=== PATIENT | female | born 1950 | race Caucasian/White ===

== ENCOUNTER 2016-10-12 12:24 | Inpatient (IN) | payer OTHER ==
--- NOTE | 2016-10-12 12:40 | ER Document Report ---
ED Medical Screen (RME) - General Stated Complaint: FAST HEART RATE Mode of Arrival: Ambulatory Information source: Patient TRAVEL OUTSIDE OF THE [place] IN LAST 30 DAYS: No - HPI Onset: Yesterday Onset/Duration: Gradual Quality of pain: No pain Associated Symptoms: denies: Chest pain, Chills, Fever, Hurts to breath, Leg swelling, Shortness of breath Exacerbated by: Denies Relieved by: Denies Similar symptoms previously: No Recently seen / treated by doctor: Yes - ORTHO, LAST WEEK - Related Data Smoking: Non-smoker Frequency of alcohol use: Occasional Drug Abuse: None Allergies/Adverse Reactions: No Known Allergies Allergy (Verified 10/21/14 20:21) Past Medical History - General Information source: Patient - Social History Cigarette use (# per day): No Chew tobacco use (# tins/day): No Frequency of alcohol use: Occasional Drug Abuse: None Lives with: Spouse/Significant other Family history: CAD - Past Medical History Cardiac Medical History: Reports: Hx Hypercholesterolemia Denies: Hx Coronary Artery Disease, Hx Heart Attack, Hx Hypertension Pulmonary Medical History: Denies: Hx Asthma, Hx Bronchitis, Hx COPD, Hx Pneumonia Neurological Medical History: Denies: Hx Cerebrovascular Accident, Hx Seizures GI Medical History: Musculoskeltal Medical History: Reports Hx Arthritis - Knee, hands Psychiatric Medical History: Reports: None Infectious Medical History: Past Surgical History: Reports: Hx Cholecystectomy, Hx Coronary Artery Bypass Graft, Hx Hysterectomy, Hx Orthopedic Surgery - R. TKR. Denies: Hx Pacemaker - Immunizations Hx Diphtheria, Pertussis, Tetanus Vaccination: Yes Review of Systems - Review of Systems Constitutional: Weakness EENT: No symptoms reported Cardiovascular: Palpitations. denies: Dyspnea, Dizziness, Edema Respiratory: denies: Short of breath Gastrointestinal: No symptoms reported Musculoskeletal: No symptoms reported. denies: Leg swelling Physical Exam - Vital signs Interpretation: Tachycardic. No: Hypertensive, Tachypneic, Febrile - General General appearance: Appears well, Alert In distress: None - HEENT Head: Normocephalic Eyes: Normal Ears: Normal Nasal: Normal Mouth/Lips: Normal Mucous membranes: Normal - Respiratory Respiratory status: No respiratory distress - Cardiovascular Rhythm: Regular, Tachycardia - Extremities General lower extremity: No: Tender, Edema
[2016-10-12] MEDS ORDERED: ADENOSINE INJ/PF 6 MG/2 ML SDV IV ONE ×2 (12:59)
[2016-10-12] MEDS ORDERED: NORMAL SALINE 1000 ML 1,000 ML IV ONE ×2 (12:59→15:37)
[2016-10-12 13:07] LABS: ABSOLUTE LYMPHOCYTES (AUTO) 1.2 10^3/uL (0.5-4.7); ABSOLUTE MONOCYTES (AUTO) 0.5 10^3/uL (0.1-1.4); ABSOLUTE NEUT (AUTO) 5.8 10^3/uL (1.7-8.2); BASOPHILS % (AUTO) 0.2 % (0-2); EOSINOPHILS % (AUTO) 0.1 % (0-6); HEMATOCRIT 40.8 % (36.0-47.0); HEMOGLOBIN 13.5 g/dL (12.0-15.5); HGB HCT DIFFERENCE -0.3; LYMPHOCYTES % (AUTO) 16.1 % (13-45); MEAN CORPUSCULAR HEMOGLOBIN 28.7 pg (27.0-33.4); MEAN CORPUSCULAR HGB CONC 33.1 g/dL (32.0-36.0); MEAN CORPUSCULAR VOLUME 87 fl (80-97); MONOCYTES % (AUTO) 7.1 % (3-13); RED BLOOD COUNT 4.71 10^6/uL (3.72-5.28); RED CELL DISTRIBUTION WIDTH 12.9 % (11.5-14.0); SEGMENTED NEUTROPHILS % (AUTO) 76.5 % (42-78); WHITE BLOOD COUNT 7.6 10^3/uL (4.0-10.5)
[2016-10-12] MEDS ORDERED: DILTIAZEM HCL/D5W 125 ML IV PRN ×2 (13:12→15:33)
[2016-10-12] MEDS ORDERED: DILTIAZEM HCL INJ 25 MG/5 ML VIAL IV ONE (13:12)
[2016-10-12] MEDS ORDERED: ASPIRIN 325 MG TABLET PO ONE (13:13)
[2016-10-12 13:29] LABS: ALANINE AMINOTRANSFERASE 45 U/L (9-52); ALBUMIN 4.3 g/dL (3.5-5.0); ALKALINE PHOSPHATASE 126 U/L (38-126); ANION GAP 14 (5-19); ASPARTATE AMINO TRANSFERASE 36 U/L (14-36); BILIRUBIN,DIRECT 0.3 mg/dL (0.0-0.4); BILIRUBIN,TOTAL 0.9 mg/dL (0.2-1.3); BLOOD UREA NITROGEN 12 mg/dL (7-20); CALCIUM 9.9 mg/dL (8.4-10.2); CARBON DIOXIDE 26 mmol/L (22-30); CHLORIDE 102 mmol/L (98-107); CREATINE KINASE 71 U/L (30-135); CREATININE RESULT 0.83 mg/dL (0.52-1.25); GLUCOSE 121 mg/dL (75-110); LIPASE 82.9 U/L (23-300); MAGNESIUM 2.2 mg/dL (1.6-2.3); POTASSIUM 3.9 mmol/L (3.6-5.0); SODIUM 141.9 mmol/L (137-145); TOTAL PROTEIN 7.2 g/dL (6.3-8.2)
[2016-10-12] MEDS ORDERED: ACETAMINOPHEN 325 MG TABLET PO ONE (13:35)
[2016-10-12 13:39] LABS: CREATINE KINASE MB 0.33 ng/mL (<4.55)
[2016-10-12 13:40] LABS: TROPONIN I < 0.012 ng/mL
[2016-10-12 13:58] LABS: THYROID STIMULATING HORMONE 1.23 uIU/mL (0.47-4.68)
[2016-10-12 14:15] LABS: PARTIAL THROMBOPLASTIN TIME 26.8 SEC (23.5-35.8); PROTHROMBIN TIME 12.9 SEC (11.4-15.4)
[2016-10-12] MEDS ORDERED: ENOXAPARIN SODIUM INJ 100 MG/1 ML DISP.SYRIN SUBCUT SCH ×2 (15:00→22:00)
[2016-10-12 15:03] LABS: APPEARANCE,URINE CLEAR; BILIRUBIN,URINE NEGATIVE (NEGATIVE); GLUCOSE, URINE NEGATIVE (NEGATIVE); KETONES,URINE NEGATIVE (NEGATIVE); LEUKOCYTE ESTERASE,URINE NEGATIVE (NEGATIVE); NITRITE,URINE NEGATIVE (NEGATIVE); PROTEIN,URINE NEGATIVE (NEGATIVE); URINE SPECIFIC GRAVITY 1.002; UROBILINOGEN,URINE NEGATIVE mg/dL (<2.0)
--- NOTE | 2016-10-12 15:18 | ER Document Report ---
ED General - General Chief Complaint: Palpitations Stated Complaint: FAST HEART RATE Mode of Arrival: Ambulatory TRAVEL OUTSIDE OF THE [place] IN LAST 30 DAYS: No - HPI Patient complains to provider of: palpitations weakness Notes: Patient coming in for evaluation of palpitations and weakness. Patient states symptoms are worse had knee surgery recent manipulation of her knees to physical therapy was very restless night priorthis point her heart rate was very elevated tried vagal maneuvers at home with no changed ever came to the ER for further evaluation. Patient also states history of CABG in the past with A. betina in the past 2 as well. Patient states she is to be on beta marcy Osito was however currently right now does not want any of those medications. Patient denies chest pain denies shortness of breath denies fevers chills nausea vomiting. Denies any recent travel - Related Data Allergies/Adverse Reactions: No Known Allergies Allergy (Verified 10/21/14 20:21) Past Medical History - General Information source: Patient - Social History Smoking Status: Unknown if Ever Smoked Cigarette use (# per day): No Chew tobacco use (# tins/day): No Frequency of alcohol use: Occasional Drug Abuse: None Lives with: Spouse/Significant other Family History: CAD - mother and father had [place] Patient has suicidal ideation: No Patient has homicidal ideation: No - Past Medical History Cardiac Medical History: Reports: Hx Hypercholesterolemia Denies: Hx Coronary Artery Disease, Hx Heart Attack, Hx Hypertension Pulmonary Medical History: Denies: Hx Asthma, Hx Bronchitis, Hx COPD, Hx Pneumonia Neurological Medical History: Denies: Hx Cerebrovascular Accident, Hx Seizures Renal/ Medical History: Denies: Hx Peritoneal Dialysis GI Medical History: Musculoskeltal Medical History: Reports Hx Arthritis - Knee, hands Psychiatric Medical History: Reports: None Infectious Medical History: Past Surgical History: Reports: Hx Cholecystectomy, Hx Coronary Artery Bypass Graft, Hx Hysterectomy, Hx Orthopedic Surgery - R. TKR. Denies: Hx Pacemaker - Immunizations Hx Diphtheria, Pertussis, Tetanus Vaccination: Yes Review of Systems - Review of Systems Constitutional: No symptoms reported EENT: No symptoms reported Cardiovascular: Palpitations Respiratory: No symptoms reported Gastrointestinal: No symptoms reported Genitourinary: No symptoms reported Female Genitourinary: No symptoms reported Musculoskeletal: No symptoms reported Skin: No symptoms reported Hematologic/Lymphatic: No symptoms reported Neurological/Psychological: No symptoms reported -: Yes All other systems reviewed and negative Physical Exam - Vital signs Interpretation: Tachycardic - General General appearance: Appears well, Alert - HEENT Head: Normocephalic, Atraumatic Eyes: Normal Pupils: PERRL - Respiratory Respiratory status: No respiratory distress Chest status: Nontender Breath sounds: Normal Chest palpation: Normal - Cardiovascular Rhythm: Tachycardia Heart sounds: Normal auscultation Murmur: No - Abdominal Inspection: Normal Distension: No distension Bowel sounds: Normal Tenderness: Nontender Organomegaly: No organomegaly - Back Back: Normal, Nontender - Extremities General upper extremity: Normal inspection, Nontender, Normal color, Normal ROM , Normal temperature General lower extremity: Normal inspection, Nontender, Normal color, Normal ROM , Normal temperature, Normal weight bearing. No: Chichi's sign - Neurological Neuro grossly intact: Yes Cognition: Normal Orientation: AAOx4 Richie Coma Scale Eye Opening: Spontaneous Richie Coma Scale Verbal: Oriented Richie Coma Scale Motor: Obeys Commands Richie Coma Scale Total: 15 Speech: Normal Motor strength normal: LUE, RUE, LLE, RLE Sensory: Normal - Psychological Associated symptoms: Normal affect, Normal mood - Skin Skin Temperature: Warm Skin Moisture: Dry Skin Color: Normal Course - Re-evaluation Re-evalutation: 10/12/16 15:16 Patient's EKG showed SVT initially with a heart rate greater than 150. Your no P waves seen and EKG. Patient was given 6 mg of adenosine an EKG that showing underlying atrial flutter. Patient was given Cardizem with rate control gain and a drip of Cardizem to maintain. Patient due to recent knee surgery and manipulation with onset of symptoms underwent a CTA showing a right-sided PE. Discuss with hospitals agrees with dose of Lovenox at this time otherwise lab work unremarkable patient will be admitted for further evaluation. - Laboratory Result Diagrams: 10/12/16 13:00 10/12/16 13:00 Laboratory results interpreted by me: 10/12/16 13:00 Glucose 121 H Critical Care Note - Critical Care Note Total time excluding time spent on procedures (mins): 40 Comments: Multiple evaluations for patient with the above stated issues managing Cardizem drip Discharge - Discharge Clinical Impression: Atrial flutter with rapid ventricular response Pulmonary embolism Qualifiers: Pulmonary embolism type: other Chronicity: acute Acute cor pulmonale presence: without acute cor pulmonale Qualified Code(s): I26.99 - Other pulmonary embolism without acute cor pulmonale Condition: Good Disposition: ADMITTED INPATIENT Admitting Provider: Hospitalist [facility] Unit Admitted: [facility]
[2016-10-12 15:24] LABS: URINE BARBITURATES SCREEN NEGATIVE; URINE METHADONE SCREEN NEGATIVE; URINE OPIATES LOW NEGATIVE; URINE PHENCYCLIDINE SCREEN NEGATIVE
[2016-10-12] MEDS ORDERED: OXYCODONE-ACETAMINOPHEN 5-325 MG TABLET PO PRN (15:29)
[2016-10-12] MEDS ORDERED: DOCUSATE SODIUM 100 MG CAPSULE PO PRN (15:29)
[2016-10-12] MEDS ORDERED: ACETAMINOPHEN 325 MG TABLET PO PRN (15:29)
[2016-10-12] MEDS ORDERED: ZOLPIDEM TARTRATE 5 MG TABLET PO PRN (15:29)
[2016-10-12] MEDS ORDERED: ONDANSETRON HCL INJ/PF 4 MG/2 ML SDV IV PRN (15:29)
[2016-10-12] MEDS ORDERED: MAG HYDROX/AL HYDROX/SIMETH SUSP 30 ML UDCUP PO PRN (15:29)
[2016-10-12] MEDS ORDERED: MAGNESIUM HYDROXIDE SUSP 30 ML UDCUP PO PRN (15:29)
[2016-10-12] MEDS ORDERED: MORPHINE SULFATE 10 MG/ML INJ IV PRN (15:43)
[2016-10-12] MEDS ORDERED: METOPROLOL SUCCINATE 50 MG TAB.SR.24H PO ONE (16:00)
[2016-10-12] MEDS ORDERED: METOPROLOL TARTRATE PF/INJ 5 MG/5 ML SDV IV ONE (16:00)
--- NOTE | 2016-10-12 16:10 | PDOC H&P ---
History of Present Illness Admission Date/PCP: 10/12/16 15:23 ERNESTO DYE MD History of Present Illness: ANETA PEREA is a 66 year old female with history of coronary artery disease, LA, hyperlipidemia, objective sleep apnea who underwent right total knee replacement on July 20. Patient reports that on Sunday she underwent a closed manipulation of her knee in [place]. She stated that the day prior she started to not feel well and after her procedure yesterday patient began feeling tired and that evening was quite restless. She woke up and found that her heart rate was 120 resting and 160 with ambulation with her pulse feeling thready. Patient reports that she then drank to 32 ounces will sugar Gatorade without a change in her heart rate. Upon presentation the emergency department patient was found to be in SVT. She was given adenosine and found to be in a flutter. Patient underwent CTA of the chest is found to have an acute right lower lobe PE. She is referred to the hospital service for evaluation. Past Medical History Cardiac Medical History: Reports: Hyperlipidema Denies: Coronary Artery Disease, Myocardial Infarction, Hypertension Pulmonary Medical History: Denies: Asthma, Bronchitis, Chronic Obstructive Pulmonary Disease (COPD), Pneumonia Neurological Medical History: Denies: Seizures Endocrine Medical History: Reports: Obesity GI Medical History: Musculoskeltal Medical History: Reports: Arthritis - Knee, hands Skin Medical History: Reports: Other - Rosacea Psychiatric Medical History: Reports: None Hematology: Denies: Anemia Past Surgical History Past Surgical History: Reports: Cholecystectomy, Coronary Artery Bypass Graft, Hysterectomy, Orthopedic Surgery - R. TKR Denies: Pacemaker Social History Lives with: Spouse/Significant other Smoking Status: Never Smoker Frequency of Alcohol Use: None Hx Recreational Drug Use: No Hx Prescription Drug Abuse: No - Advance Directive Resuscitation Status: Full Code Surrogate healthcare decision maker:: Ángel, Family History Family History: CAD - mother and father had [place], DM, Malignancy Parental Family History Reviewed: Yes Children Family History Reviewed: Yes Sibling(s) Family History Reviewed.: Yes Medication/Allergy Allergies/Adverse Reactions: No Known Allergies Allergy (Verified 10/21/14 20:21) Review of Systems Constitutional: PRESENT: fatigue, headache(s), night sweats - 1 day. ABSENT: chills, fever(s), weight gain, weight loss Eyes: ABSENT: visual disturbances Ears: ABSENT: hearing changes Cardiovascular: PRESENT: edema. ABSENT: chest pain, dyspnea on exertion, orthropnea, palpitations Respiratory: ABSENT: cough, dyspnea, hemoptysis, sputum Gastrointestinal: ABSENT: abdominal pain, constipation, diarrhea, hematemesis, hematochezia, melena, nausea, vomiting Genitourinary: ABSENT: dysuria, hematuria Musculoskeletal: PRESENT: joint swelling - Right knee Integumentary: ABSENT: rash, wounds Neurological: ABSENT: abnormal gait, abnormal speech, confusion, dizziness, focal weakness, syncope Psychiatric: ABSENT: anxiety, depression, homidical ideation, suicidal ideation Endocrine: ABSENT: cold intolerance, heat intolerance, polydipsia, polyuria Hematologic/Lymphatic: ABSENT: easy bleeding, easy bruising Physical Exam General appearance: PRESENT: no acute distress, obese, well-developed, well- nourished Head exam: PRESENT: atraumatic, normocephalic Eye exam: PRESENT: conjunctiva pink, EOMI, PERRLA. ABSENT: scleral icterus Ear exam: PRESENT: normal external ear exam Mouth exam: PRESENT: moist, tongue midline Neck exam: ABSENT: JVD, lymphadenopathy, thyromegaly, tracheal deviation Respiratory exam: PRESENT: clear to auscultation fred, symmetrical, unlabored. ABSENT: accessory muscle use, crackles, prolonged expiratory phas, rales, rhonchi, tachypnea, wheezes Cardiovascular exam: PRESENT: irregular rhythm, +S1, +S2, tachycardia. ABSENT: diastolic murmur, gallop, rubs, systolic murmur Pulses: PRESENT: normal dorsalis pedis pul Vascular exam: PRESENT: normal capillary refill GI/Abdominal exam: PRESENT: normal bowel sounds, soft. ABSENT: distended, guarding, mass, organolmegaly, rebound, tenderness Rectal exam: PRESENT: deferred Extremities exam: PRESENT: full ROM, joint swelling - Right knee, other - Right knee popliteal Titus's cyst. ABSENT: calf tenderness, clubbing, pedal edema Musculoskeletal exam: PRESENT: ambulatory. ABSENT: full ROM - Decreased range of motion right knee Neurological exam: PRESENT: alert, awake, oriented to person, oriented to place , oriented to time, oriented to situation, CN II-XII grossly intact. ABSENT: motor sensory deficit Psychiatric exam: PRESENT: appropriate affect, normal mood. ABSENT: homicidal ideation, suicidal ideation Skin exam: PRESENT: dry, intact, warm. ABSENT: cyanosis, rash Results Laboratory Results: 10/12/16 10/12/16 10/12/16 13:00 13:00 13:00 Hgb 13.5 Hct 40.8 Plt Count 316 INR Potassium 3.9 BUN 12 Creatinine 0.83 Troponin I < 0.012 TSH Free T4 10/12/16 10/12/16 13:00 13:00 Hgb Hct Plt Count INR 0.94 Potassium BUN Creatinine Troponin I TSH 1.23 Free T4 1.41 Impressions: Chest X-Ray 10/12/16 12:35 IMPRESSION: NO ACUTE RADIOGRAPHIC FINDING IN THE CHEST. Chest/Abdomen CTA 10/12/16 13:13 IMPRESSION: There is a limited amount of thrombus in the right lower lobe pulmonary artery as described. Status: Imported from PACS Assessment & Plan - Diagnosis (1) Atrial flutter with rapid ventricular response Is this a current diagnosis for this admission?: YesPlan: Place patient on diltiazem drip. Will give her a one-time dose of IV metoprolol and see if she responds better to this. We will trend her cardiac enzymes. Her TSH is negative. This is likely precipitated by her underlying pulmonary embolus. We will check an echo. And patient will be placed on Eliquis for anticoagulation for her pulmonary blood switch will also cover this. Will consult cardiology. (2) Pulmonary embolism Qualifiers: Pulmonary embolism type: other Chronicity: acute Acute cor pulmonale presence: without acute cor pulmonale Qualified Code(s): I26.99 - Other pulmonary embolism without acute cor pulmonale Is this a current diagnosis for this admission?: YesPlan: Will place patient on Lovenox. Secondary to a peripheral DVT. Will check bilateral lower extremity Dopplers. Will place patient on Eliquis. Patient purchased Eliquis in the past after bypass and had good results. (3) CAD (coronary artery disease) Qualifiers: Coronary Disease-Associated Artery/Lesion type: [place] artery [place] vs. transplanted heart: [place] heart Associated angina: without angina Qualified Code(s): I25.10 - Atherosclerotic heart disease of [place] coronary artery without angina pectoris Is this a current diagnosis for this admission?: YesPlan: Patient on aspirin, metoprolol as an outpatient. Continue to monitor. (4) SHEILA (obstructive sleep apnea) Is this a current diagnosis for this admission?: YesPlan: Home CPAP (5) Obesity (BMI 30.0-34.9) Is this a current diagnosis for this admission?: Yes - Time Time Spent: 50 to 70 Minutes Medications reviewed and adjusted accordingly: Yes Anticipated discharge: Home Within: within 48 hours, within 72 hours - Inpatient Certification Based on my medical assessment, after consideration of the patient's comorbidities, presenting symptoms, or acuity I expect that the services needed warrant INPATIENT care.: Yes I certify that my determination is in accordance with my understanding of Medicare's requirements for reasonable and necessary INPATIENT services [42 CFR 412.3e].: Yes Medical Necessity: Need For IV Fluids, Need For Continuous Telemetry Monitoring Post Hospital Care: 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
[2016-10-12] MEDS ORDERED: ENOXAPARIN SODIUM INJ 100 MG/1 ML DISP.SYRIN SUBCUT ONE (16:30)
[2016-10-12 16:57] LABS: CREATINE KINASE MB 0.24 ng/mL (<4.55)
[2016-10-12 17:01] LABS: TROPONIN I < 0.012 ng/mL
[2016-10-12 17:04] LABS: PROTHROMBIN TIME 12.9 SEC (11.4-15.4)
[2016-10-12 17:05] LABS: PARTIAL THROMBOPLASTIN TIME 28.9 SEC (23.5-35.8)
[2016-10-12] MEDS ORDERED: APIXABAN 5 MG TABLET PO SCH (18:00)
--- NOTE | 2016-10-12 19:34 | XCELERA REPORT ---
[address] [address] Transthoracic Echocardiogram Report Name: ANETA PEREA Age: 66 yrs Gender: Female : 1950 Patient Status: Inpatient Patient Location: \S\70\S\A Study Date: 10/12/2016 04:23 PM Height: 66 in Weight: 202 lb BSA: 2.0 m2 Procedure: A complete two-dimensional transthoracic echocardiogram was performed (2D, M-mode, spectral and color flow Doppler). The study was technically difficult with many images being suboptimal in quality. Reason For Study: acute pe Ordering Physician: KENIA FONG Performed By: Elizabeth Gutierrez Interpretation Summary The study was technically difficult with many images being suboptimal in quality. The left ventricular ejection fraction is normal. Diastolic Function can not be accurately assessed because of A. Flutter The left ventricle is grossly normal size. There is normal left ventricular wall thickness. Wall motion cannot be accurately commented on, but no definite regional wall motion abnormalities noted. The right ventricle is borderline dilated. The right ventricular systolic function is normal. The right atrium is normal in size The left atrium is mildly dilated. There is no mitral valve stenosis. No aortic regurgitation is present. There is no aortic valve stenosis There is a moderate amount of tricuspid regurgitation There is mild pulmonary hypertension by echo Right ventricular systolic pressure is estimated to be elevated at 30- 40mmHg. There is no pericardial effusion. MMode/2D Measurements \T\ Calculations RVDd: 2.5 cm LVIDd: 4.2 cm FS: 36.7 % Ao root diam: 2.8 cm IVSd: 0.87 cm LVIDs: 2.7 cm EDV(Teich): 80.0 ml LVPWd: 1.00 cmESV(Teich): 26.5 ml Ao root area: 6.1 cm2 EF(Teich): 66.9 % LA dimension: 3.9 cm LVOT diam: 1.9 cm LVOT area: 2.9 cm2 Doppler Measurements \T\ Calculations MV E max tonny: MV P1/2t max tonny: Ao V2 max: LV V1 max P.2 cm/sec 128.3 cm/sec 127.6 cm/sec 2.9 mmHg MV P1/2t: 39.5 msec Ao max PG: LV V1 max: MVA(P1/2t): 5.6 cm2 6.5 mmHg 85.3 cm/sec MV dec slope: GABE(V,D): 2.0 cm2 950.8 cm/sec2 PA V2 max: PI end-d tonny: TR max tonny: 60.7 cm/sec 143.3 cm/sec 247.6 cm/sec PA max P.5 mmHg TR max P.5 mmHg Left Ventricle The left ventricle is grossly normal size. There is normal left ventricular wall thickness. The left ventricular ejection fraction is normal. LV diastolic function could not be adequately assessed due to atrial fibrilation. Wall motion cannot be accurately commented on, but no definite regional wall motion abnormalities noted. Right Ventricle The right ventricle is borderline dilated. There is normal right ventricular wall thickness. The right ventricular systolic function is normal. Atria The right atrium is normal in size. The left atrium is mildly dilated. Interarterial septum not well visualized and not well dopplered. Cannot comment on ASD/PFO presence. Mitral Valve The mitral valve leaflets are sclerotic, but show no functional abnormalities. There is no mitral valve stenosis. There is a moderate amount of mitral regurgitation. Aortic Valve The aortic valve is grossly normal. There is no aortic valve stenosis. No aortic regurgitation is present. Tricuspid Valve The tricuspid valve is not well visualized, but is grossly normal. There is no tricuspid stenosis. There is a moderate amount of tricuspid regurgitation. There is mild pulmonary hypertension by echo. Right ventricular systolic pressure is estimated to be elevated at 30-40mmHg. Pulmonic Valve The pulmonic valve is not well visualized. Great Vessels The aortic root is not well visualized but is probably normal size. The inferior vena cava was not well visualized. Effusions There is no pericardial effusion. : KENIA FONG > Beau Cisneros
--- NOTE | 2016-10-12 20:49 | PDOC CONSULTATION ---
Consultation Consult Date: 10/12/16 Attending physician:: KENIA FONG Consult reason:: Atrial flutter History of Present Illness Admission Date/PCP: 10/12/16 15:29 ERNESTO DYE MD Patient complains of: Shortness of breath History of Present Illness: ANETA PEREA is a 66 year old female with history of coronary artery disease, [place], hyperlipidemia, objective sleep apnea who underwent right total knee replacement on July 20. Patient reports that on Sunday she underwent a closed manipulation of her knee in [place]. She stated that the day prior she started to not feel well and after her procedure yesterday patient began feeling tired and that evening was quite restless. She woke up and found that her heart rate was 120 resting and 160 with ambulation with her pulse feeling thready. Patient reports that she then drank to 32 ounces will sugar Gatorade without a change in her heart rate. Upon presentation the emergency department patient was found to be in SVT. She was given adenosine and found to be in a flutter. Patient underwent CTA of the chest is found to have an acute right lower lobe PE. She is referred to the hospital service for evaluation. This history was reviewed and confirmed. Past Medical History Cardiac Medical History: Reports: Hyperlipidema Denies: Coronary Artery Disease, Myocardial Infarction, Hypertension Pulmonary Medical History: Denies: Asthma, Bronchitis, Chronic Obstructive Pulmonary Disease (COPD), Pneumonia Neurological Medical History: Denies: Seizures Endocrine Medical History: Reports: Obesity GI Medical History: Musculoskeltal Medical History: Reports: Arthritis - Knee, hands Skin Medical History: Reports: Other - Rosacea Psychiatric Medical History: Reports: None Hematology: Denies: Anemia Past Surgical History Past Surgical History: Reports: Cholecystectomy, Coronary Artery Bypass Graft, Hysterectomy, Orthopedic Surgery - R. TKR Denies: Pacemaker Social History Information Source: Patient Lives with: Spouse/Significant other Smoking Status: Never Smoker Frequency of Alcohol Use: Occasional Hx Recreational Drug Use: No Hx Prescription Drug Abuse: No - Advance Directive Resuscitation Status: Full Code Surrogate healthcare decision maker:: Patient's Family History Family History: CAD - mother and father had [place], DM, Malignancy Parental Family History Reviewed: Yes Children Family History Reviewed: Yes Sibling(s) Family History Reviewed.: Yes Medication/Allergy Home Medications: Aspirin [Aspirin EC] 81 mg PO QAM 10/12/16 Atorvastatin Calcium [Lipitor 40 mg Tablet] 40 mg PO QAM 10/12/16 Gabapentin [Neurontin 300 mg Capsule] 600 mg PO QHS 10/12/16 Hydrocodone/Acetaminophen [[place] 7.5-325 Tablet] 1 tab PO HSP PRN 10/12/16 Metoprolol Succinate [Toprol Xl 25 mg Tab.sr] 25 mg PO QAM 10/12/16 Multivitamin [Daily Multiple Vitamin] 1 tab PO DAILY 10/12/16 Ubidecarenone [Coq-10] 200 mg PO DAILY 10/12/16 Allergies/Adverse Reactions: No Known Allergies Allergy (Verified 10/21/14 20:21) Review of Systems Review of Systems: Please see history of present illness and past medical history as wall. Constitutional: No fever or chills reported. Head : No recent chronic headaches, recent head injury. Eyes: No recent eye pain, diplopia, redness, discharge, acute visual changes. Ears: No recent chronic ear pain, acute hearing loss, ear discharge. Oral cavity: No recent ulcerations, bleeding, oral cavity discomfort. Neck: No recent acute neck pain reported. Hematologic: No recent easy bruising or bleeding or hematologic malignancy reported. Lymphatic: No recent lymphatic malignancy, chronic lymphadenopathy reported yet Cardiovascular system review: See history of present illness. Noted palpitations, fatigue and tiredness. Respiratory system review: No recent chronic cough, hemoptysis, blood clots in the lungs reported. Mild Shortness of breath on exertion Gastrointestinal system review: Negative for any recent acute or chronic abdominal pain, hematemesis, melena, recent change in bowel habits. Genitourinary system review: No recent acute or chronic hematuria, flank pain, UTI etc. reported. Skin system review: Negative for any recent abnormal bruising, no rash, no pruritus reported. Neurologic: No prior history of strokes, mini strokes, seizure disorder. Psychologic: No history of major psychosis or major depression reported. Musculoskeletal: Minor aches and pains reported. No acute joint swelling reported. Endocrine: No recent polyuria, polydipsia, recent heat or cold intolerance. Physical Exam Vital Signs: Temp Pulse Resp BP Pulse Ox 97.4 F 71 20 100/56 L 100 10/12/16 18:15 10/12/16 19:09 10/12/16 18:15 10/12/16 18:15 10/12/16 18:15 Exam: GENERAL: well-nourished and in no acute distress. Alert and oriented x3 HEAD: Atraumatic, normocephalic. EYES: Pupils equal round and reactive to light, extraocular movements intact, sclera anicteric, conjunctiva are normal. ENT: TMs normal, nares patent, oropharynx clear without exudates. Moist mucous membranes. No oral ulcerations or bleeding gums noted NECK: supple without lymphadenopathy. Trachea is central. No cervical or axillary lymphadenopathy noted. Carotids are 2+, JVD WNL LUNGS: Respiration seems nonlabored, no significant accessory muscle action noted. Breath sounds clear to auscultation bilaterally and equal noted. No wheezes rales or rhonchi noted. No significant dullness noted on percussion. CHEST: Palpation of the chest wall shows no significant chest wall tenderness. No other significant abnormalities noted. 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 ABDOMEN: Soft, no significant tenderness appreciated, normoactive bowel sounds. No guarding, no rebound. No rigidity noted . No masses appreciated. EXTREMITIES: Pedal pulses are 1-2+, no calf tenderness noted. No clubbing or cyanosis.1+ pedal edema noted, right more than left NEUROLOGICAL: Focused neurological exam showed no significant neurologic deficit. Normal speech, no focal weakness appreciated. PSYCH: Normal mood, normal affect. Judgment and insight within normal limits. SKIN: No significant ecchymosis, rash, ulcerations or signs of pruritus noted. MUSCULOSKELETAL EXAM: No significant joint swelling noted. Scar of right knee surgery noted. Results Laboratory Results: 10/12/16 10/12/16 16:09 16:09 Magnesium 2.2 TSH 0.95 10/12/16 10/12/16 16:09 16:09 Creatine Kinase 63 CK-MB (CK-2) 0.24 Troponin I < 0.012 EKG Comments: Atypical atrial flutter, 2 Impressions: Venous Doppler Study 10/12/16 00:00 IMPRESSION: NO EVIDENCE DVT OR SVT IN EITHER LEG. Chest X-Ray 10/12/16 12:35 IMPRESSION: NO ACUTE RADIOGRAPHIC FINDING IN THE CHEST. Chest/Abdomen CTA 10/12/16 13:13 IMPRESSION: There is a limited amount of thrombus in the right lower lobe pulmonary artery as described. Assessment & Plan - Diagnosis (1) Atrial flutter with rapid ventricular response Is this a current diagnosis for this admission?: Yes (2) CAD (coronary artery disease) Qualifiers: Coronary Disease-Associated Artery/Lesion type: [place] artery [place] vs. transplanted heart: [place] heart Associated angina: without angina Qualified Code(s): I25.10 - Atherosclerotic heart disease of [place] coronary artery without angina pectoris Is this a current diagnosis for this admission?: Yes (3) SHEILA (obstructive sleep apnea) Is this a current diagnosis for this admission?: Yes (4) Obesity (BMI 30.0-34.9) Is this a current diagnosis for this admission?: Yes (5) Pulmonary embolism Qualifiers: Pulmonary embolism type: other Chronicity: acute Acute cor pulmonale presence: without acute cor pulmonale Qualified Code(s): I26.99 - Other pulmonary embolism without acute cor pulmonale Is this a current diagnosis for this admission?: Yes - Notes Notes: Atrial flutter, atypical: Most likely precipitated by pulmonary embolism but patient May have a reentrant circuit. At this point patient has converted spontaneously to sinus rhythm. If there is recurrence will consider ablation. Coronary artery disease: Patient status post CABG about 2 years ago. Currently stable. Continue with statin therapy. Continue beta marcy, EMIR inhibitor therapy. Sleep apnea syndrome: Patient on nightly CPAP therapy. Pulmonary embolism: Continue with anticoagulation. Precipitating factor is knee surgery. Therefore at least 6 months of chronic anticoagulation is needed. - Time Time Spent: 30 to 50 Minutes - CODE STATUS was discussed, patient remains full code. Surrogate decision-maker unchanged. Multiple medical problems were addressed.More than 50% of the time spent coordinating care, discussing management plans with involved caregivers. Management plans discussed with involved personnels. Medical decision making was of high complexity, patient's has multiple severe comorbidities. Medications reviewed and adjusted accordingly: Yes
[2016-10-12] MEDS: NORMAL SALINE 1000 ML 1,000 ML IV PRN (21:22)
[2016-10-12] MEDS: NORMAL SALINE 1000 ML 2,000 ML IV PRN ×2 (21:28→21:30)
[2016-10-12] MEDS: APIXABAN 5 MG TABLET PO SCH (21:40)
[2016-10-12] MEDS: DILTIAZEM HCL 30 MG TABLET PO SCH (21:40)
[2016-10-12] MEDS: METOPROLOL SUCCINATE 50 MG TAB.SR.24H PO SCH (21:41)
[2016-10-12] MEDS ORDERED: GABAPENTIN 300 MG CAPSULE PO SCH (22:00)
[2016-10-12] MEDS ORDERED: ATORVASTATIN CALCIUM 40 MG TABLET PO SCH (22:00)
[2016-10-12 22:03] LABS: CREATINE KINASE MB 0.22 ng/mL (<4.55)
[2016-10-12 22:08] LABS: TROPONIN I < 0.012 ng/mL
[2016-10-13] MEDS: DILTIAZEM HCL 30 MG TABLET PO SCH ×2 (03:36→09:28)
[2016-10-13 04:37] LABS: ABSOLUTE MONOCYTES (AUTO) 0.4 10^3/uL (0.1-1.4); ABSOLUTE NEUT (AUTO) 3.2 10^3/uL (1.7-8.2); BASOPHILS % (AUTO) 0.2 % (0-2); EOSINOPHILS % (AUTO) 0.1 % (0-6); HEMATOCRIT 36.3 % (36.0-47.0); HEMOGLOBIN 11.7 g/dL (12.0-15.5); HGB HCT DIFFERENCE -1.2; MEAN CORPUSCULAR HEMOGLOBIN 28.4 pg (27.0-33.4); MEAN CORPUSCULAR HGB CONC 32.2 g/dL (32.0-36.0); MEAN CORPUSCULAR VOLUME 88 fl (80-97); MONOCYTES % (AUTO) 9.1 % (3-13); RED BLOOD COUNT 4.12 10^6/uL (3.72-5.28); SEGMENTED NEUTROPHILS % (AUTO) 69.6 % (42-78); WHITE BLOOD COUNT 4.6 10^3/uL (4.0-10.5)
[2016-10-13] MEDS: NORMAL SALINE 1000 ML 1,000 ML IV PRN (04:50)
[2016-10-13 04:55] LABS: ANION GAP 10 (5-19); BLOOD UREA NITROGEN 12 mg/dL (7-20); CALCIUM 8.3 mg/dL (8.4-10.2); CARBON DIOXIDE 22 mmol/L (22-30); CHLORIDE 113 mmol/L (98-107); CHOLESTEROL 135.71 mg/dL (0-200); CREATININE RESULT 0.73 mg/dL (0.52-1.25); Direct HDL 34 mg/dL (>40); GLUCOSE 108 mg/dL (75-110); SODIUM 145.1 mmol/L (137-145); TRIGLYCERIDES 125 mg/dL (<150)
[2016-10-13 05:05] LABS: DIRECT LDL 76 mg/dL (<100)
[2016-10-13 05:07] LABS: CREATINE KINASE MB < 0.22 ng/mL (<4.55); TROPONIN I < 0.012 ng/mL
[2016-10-13] MEDS ORDERED: ASPIRIN 81 MG TABLET, ENT COATED PO SCH (08:00)
[2016-10-13 08:03] LABS: APPEARANCE,URINE SLIGHTLY-CLOUDY; BILIRUBIN,URINE NEGATIVE (NEGATIVE); GLUCOSE, URINE NEGATIVE (NEGATIVE); KETONES,URINE NEGATIVE (NEGATIVE); LEUKOCYTE ESTERASE,URINE NEGATIVE (NEGATIVE); NITRITE,URINE NEGATIVE (NEGATIVE); PROTEIN,URINE NEGATIVE (NEGATIVE); URINE SPECIFIC GRAVITY 1.032; UROBILINOGEN,URINE NEGATIVE mg/dL (<2.0)
--- NOTE | 2016-10-13 08:19 | EKG REPORT ---
SEVERITY:- ABNORMAL ECG - A-FLUTTER W/ PREDOM 4:1 AV BLOCK, A-RATE 300 : Confirmed by: Saul Kuhn MD 13-Oct-2016 08:18:53
--- NOTE | 2016-10-13 08:20 | EKG REPORT ---
SEVERITY:- ABNORMAL ECG - A FLUTTER BORDERLINE PROLONGED QT INTERVAL : Confirmed by: Saul Kuhn MD 13-Oct-2016 08:20:05
--- NOTE | 2016-10-13 08:20 | EKG REPORT ---
SEVERITY:- ABNORMAL ECG - A FLUTTER/FIB HIGH GRADE AVB : Confirmed by: Saul Kuhn MD 13-Oct-2016 08:19:42
[2016-10-13] MEDS: APIXABAN 5 MG TABLET PO SCH (09:28)
[2016-10-13] MEDS: METOPROLOL SUCCINATE 50 MG TAB.SR.24H PO SCH (09:28)
[2016-10-13] MEDS ORDERED: (PENDING PHARMACY ID) (Ubidecarenone [Coq-10] 200 MG) PO SCH (10:00)
[2016-10-13 10:56] VITALS: BP 100/56
--- NOTE | 2016-10-13 18:59 | PDOC DISCHARGE SUMMARY ---
General - Admit/Disc Date/PCP Admission Date/Primary Care Provider: 10/12/16 15:29 ERNESTO DYE MD Discharge Date: 10/13/16 - Discharge Diagnosis (1) Atrial flutter with rapid ventricular response Is this a current diagnosis for this admission?: Yes (2) Pulmonary embolism Is this a current diagnosis for this admission?: Yes (3) CAD (coronary artery disease) Is this a current diagnosis for this admission?: Yes (4) SHEILA (obstructive sleep apnea) Is this a current diagnosis for this admission?: Yes (5) Obesity (BMI 30.0-34.9) Is this a current diagnosis for this admission?: Yes - Additional Information Resuscitation Status: Full Code Discharge Diet: Cardiac Discharge Activity: Activity As Tolerated, Slowly Increase Activity Home Medications: Atorvastatin Calcium [Lipitor 40 mg Tablet] 40 mg PO QAM 10/12/16 Gabapentin [Neurontin 300 mg Capsule] 600 mg PO QHS 10/12/16 Hydrocodone/Acetaminophen [[place] 7.5-325 Tablet] 1 tab PO HSP PRN 10/12/16 Multivitamin [Daily Multiple Vitamin] 1 tab PO DAILY 10/12/16 Ubidecarenone [Coq-10] 200 mg PO DAILY 10/12/16 Apixaban [Eliquis 5 mg Tablet] 10 mg PO Q12 #28 tablet 10/13/16 Apixaban [Eliquis] 5 mg PO Q12 #30 tablet 10/13/16 Diltiazem HCl [Diltiazem 24Hr Cd] 120 mg PO QHS #30 cap.er.24h 10/13/16 Metoprolol Succinate [Toprol Xl 50 mg Tab.sr] 50 mg PO Q12 #60 tab.sr.24h History of Present Illness History of Present Illness: ANETA PEREA is a 66 year old female with history of coronary artery disease, [place], hyperlipidemia, objective sleep apnea who underwent right total knee replacement on July 20. Patient reports that on Sunday she underwent a closed manipulation of her knee in [place]. She stated that the day prior she started to not feel well and after her procedure yesterday patient began feeling tired and that evening was quite restless. She woke up and found that her heart rate was 120 resting and 160 with ambulation with her pulse feeling thready. Patient reports that she then drank to 32 ounces will sugar Gatorade without a change in her heart rate. Upon presentation the emergency department patient was found to be in SVT. She was given adenosine and found to be in a flutter. Patient underwent CTA of the chest is found to have an acute right lower lobe PE. She is referred to the hospital service for evaluation. Hospital Course Hospital Course: Patient converted to sinus rhythm yesterday afternoon after an increase in her metoprolol. Patient was started on Lovenox and transition to Eliquis. Feel that this is still likely precipitated PE secondary to recent surgery. However , in light of negative lower extremity Dopplers have patient follow-up with Dr. Corona of hematology oncology. Have advised patient to follow with her infrastructure project manager. Patient is doing well and questions were asked to the best of ability. She is discharged home in stable condition Physical Exam Vital Signs: Temp Pulse Resp BP Pulse Ox 98.2 F 77 18 100/56 L 100 10/13/16 10:54 10/13/16 10:54 10/13/16 10:54 10/13/16 10:54 10/13/16 10:54 Intake & Output 10/12/16 10/13/16 10/14/16 06:59 06:59 06:59 Intake Total 3125 237 Output Total 800 Balance 2325 237 Weight 99.6 kg Exam: General: Awake alert and oriented x3, no acute respiratory distress HEENT: AT/NC, PERRL, EOMI, oropharynx is moist, pink, no scleral icterus, no conjunctival injection Neck: No JVD, trachea midline Chest: Clear to auscultation bilaterally, no wheezes rhonchi or rales CV: Regular rate and rhythm, normal S1 and S2, no murmur, rub, or gallop Abdomen: Soft, nontender to palpation, nondistended, active bowel sounds; no rebound, rigidity, or guarding Extremities: No cyanosis, clubbing or edema Neuro: Cranial nerves II through XII are grossly intact without focal deficits; awake alert and oriented x3 Psych: Normal mood and affect Results Laboratory Results: 10/13/16 03:31 10/13/16 03:31 10/13/16 10/13/16 10/13/16 03:31 03:31 07:10 WBC 4.6 RBC 4.12 Hgb 11.7 L Hct 36.3 MCV 88 MCH 28.4 MCHC 32.2 RDW 13.0 Plt Count 189 Seg Neutrophils % 69.6 Lymphocytes % 21.0 Monocytes % 9.1 Eosinophils % 0.1 Basophils % 0.2 Absolute Neutrophils 3.2 Absolute Lymphocytes 1.0 Absolute Monocytes 0.4 Absolute Eosinophils 0.0 Absolute Basophils 0.0 Sodium 145.1 H Potassium 4.0 Chloride 113 H Carbon Dioxide 22 Anion Gap 10 BUN 12 Creatinine 0.73 Est GFR ( Amer) > 60 Est GFR (Non-Af Amer) > 60 Glucose 108 Calcium 8.3 L Triglycerides 125 Cholesterol 135.71 LDL Cholesterol Direct 76 VLDL Cholesterol 25.0 HDL Cholesterol 34 L Urine Color YELLOW Urine Appearance SLIGHTLY-CLOUDY Urine pH 5.0 Ur Specific [place] 1.032 Urine Protein NEGATIVE Urine Glucose (UA) NEGATIVE Urine Ketones NEGATIVE Urine Blood NEGATIVE Urine Nitrite NEGATIVE Ur Leukocyte Esterase NEGATIVE Urine WBC (Auto) 2 Urine RBC (Auto) 1 10/12/16 10/12/16 10/12/16 16:09 16:09 21:22 Creatine Kinase 63 56 CK-MB (CK-2) 0.24 Troponin I < 0.012 10/12/16 10/13/16 10/13/16 21:22 03:30 03:31 Creatine Kinase 50 CK-MB (CK-2) 0.22 < 0.22 Troponin I < 0.012 < 0.012 Impressions: Venous Doppler Study 10/12/16 00:00 IMPRESSION: NO EVIDENCE DVT OR SVT IN EITHER LEG. Chest X-Ray 10/12/16 12:35 IMPRESSION: NO ACUTE RADIOGRAPHIC FINDING IN THE CHEST. Chest/Abdomen CTA 10/12/16 13:13 IMPRESSION: There is a limited amount of thrombus in the right lower lobe pulmonary artery as described. Qualifiers PATEINT BEING DISCHARGED WITH ANY OF THE FOLLOWING DIAGNOSIS?: VTE (PE or DVT) VTE patient discharged on overlapping Therapy?: No Reason(s) for not prescribing Overlap Therapy:: Not indicated - On eliquis Plan Time Spent: Less than 30 Minutes
--- NOTE | 2016-10-14 15:38 | PDOC PROGRESS REPORT ---
Subjective Progress Note for:: 10/13/16 Subjective:: Patient was seen on morning rounds at around 9 AM. Patient had converted to sinus rhythm and is maintaining sinus rhythm. Patient denied any chest pain. She is comfortable without any shortness of breath. Telemetry strips reviewed showed sinus rhythm. Physical Exam Vital Signs: Temp Pulse Resp BP Pulse Ox 98.2 F 77 18 100/56 L 100 10/13/16 10:54 10/13/16 10:54 10/13/16 10:54 10/13/16 10:54 10/13/16 10:54 Intake & Output 10/13/16 10/14/16 10/15/16 06:59 06:59 06:59 Intake Total 3125 237 Output Total 800 Balance 2325 237 Weight 99.6 kg Exam: GENERAL: well-nourished and in no acute distress. Alert and oriented x3 HEAD: Atraumatic, normocephalic. EYES: Pupils equal round and reactive to light, extraocular movements intact, sclera anicteric, conjunctiva are normal. ENT: TMs normal, nares patent, oropharynx clear without exudates. Moist mucous membranes. No oral ulcerations or bleeding gums noted NECK: supple without lymphadenopathy. Trachea is central. No cervical or axillary lymphadenopathy noted. Carotids are 2+, JVD WNL LUNGS: Respiration seems nonlabored, no significant accessory muscle action noted. Breath sounds clear to auscultation bilaterally and equal noted. No wheezes rales or rhonchi noted. No significant dullness noted on percussion. CHEST: Palpation of the chest wall shows no significant chest wall tenderness. No other significant abnormalities noted. 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 ABDOMEN: Soft, no significant tenderness appreciated, normoactive bowel sounds. No guarding, no rebound. No rigidity noted . No masses appreciated. EXTREMITIES: Pedal pulses are 1-2+, no calf tenderness noted. No clubbing or cyanosis.trace to 1+ pedal edema noted NEUROLOGICAL: Focused neurological exam showed no significant neurologic deficit. Normal speech, no focal weakness appreciated. PSYCH: Normal mood, normal affect. Judgment and insight within normal limits. SKIN: No significant ecchymosis, rash, ulcerations or signs of pruritus noted. MUSCULOSKELETAL EXAM: No significant joint swelling noted. Scar of recent right knee replacement surgery. Results Laboratory Results: 10/13/16 03:31 10/13/16 03:31 10/12/16 10/12/16 10/12/16 16:09 16:09 21:22 Creatine Kinase 63 56 CK-MB (CK-2) 0.24 Troponin I < 0.012 10/12/16 10/13/16 10/13/16 21:22 03:30 03:31 Creatine Kinase 50 CK-MB (CK-2) 0.22 < 0.22 Troponin I < 0.012 < 0.012 Impressions: Venous Doppler Study 10/12/16 00:00 IMPRESSION: NO EVIDENCE DVT OR SVT IN EITHER LEG. Chest X-Ray 10/12/16 12:35 IMPRESSION: NO ACUTE RADIOGRAPHIC FINDING IN THE CHEST. Chest/Abdomen CTA 10/12/16 13:13 IMPRESSION: There is a limited amount of thrombus in the right lower lobe pulmonary artery as described. Assessment & Plan - Diagnosis (1) Atrial flutter with rapid ventricular response Is this a current diagnosis for this admission?: Yes (2) CAD (coronary artery disease) Qualifiers: Coronary Disease-Associated Artery/Lesion type: [place] artery [place] vs. transplanted heart: [place] heart Associated angina: without angina Qualified Code(s): I25.10 - Atherosclerotic heart disease of [place] coronary artery without angina pectoris Is this a current diagnosis for this admission?: Yes (3) SHEILA (obstructive sleep apnea) Is this a current diagnosis for this admission?: Yes (4) Obesity (BMI 30.0-34.9) Is this a current diagnosis for this admission?: Yes (5) Pulmonary embolism Qualifiers: Pulmonary embolism type: other Chronicity: acute Acute cor pulmonale presence: without acute cor pulmonale Qualified Code(s): I26.99 - Other pulmonary embolism without acute cor pulmonale Is this a current diagnosis for this admission?: Yes - Notes Notes: Atrial flutter with rapid ventricular response: Patient converted to sinus rhythm and has maintained sinus rhythm spontaneously. Precipitating factor is felt to be pulmonary embolism. Discussed association of cardiac dysrhythmia with sleep apnea syndrome. Coronary artery disease: Currently stable. No symptoms of angina or angina equivalent symptom noted. Obstructive sleep apnea: Patient informed that she could follow-up with me if she wishes in this regard. 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 Pulmonary embolism: Patient has been switched to oral anticoagulants. Obesity: Patient encouraged in weight loss. - Time Time with patient: 15-25 minutes - CODE STATUS was discussed, patient remains full code. Surrogate decision-maker patient's . Multiple medical problems were addressed.More than 50% of the time spent coordinating care, discussing management plans with involved caregivers. Management plans discussed with involved personnels. Medical decision making was of moderate complexity.
== END 2016-10-13 12:02 | disposition home or self-care (01) | DRG 176 ==
LOC: ER 12:24 → EH 15:23 → UNDOADMIN 15:23 → EH 15:29 → 3S 18:18
PROVIDERS: ADMIT Family Medicine; ATTEND Family Medicine
PROC: 5A09357 Assistance with Respiratory Ventilation, Less than 24 Consecutive Hours, Continuous Positive Airway Pressure (ICD-10-PCS; principal; 2016-10-12)
DX: I26.99 Other pulmonary embolism without acute cor pulmonale (principal); I48.92 Unspecified atrial flutter; I47.1 Supraventricular tachycardia; G47.33 Obstructive sleep apnea (adult) (pediatric); E66.9 Obesity, unspecified; Z68.35 Body mass index [BMI] 35.0-35.9, adult; I25.10 Atherosclerotic heart disease of native coronary artery without angina pectoris; M13.869 Other specified arthritis, unspecified knee; M19.042 Primary osteoarthritis, left hand; M19.041 Primary osteoarthritis, right hand; E78.00 Pure hypercholesterolemia, unspecified; I25.2 Old myocardial infarction; Z96.651 Presence of right artificial knee joint; Z79.899 Other long term (current) drug therapy; Z95.1 Presence of aortocoronary bypass graft; Z90.710 Acquired absence of both cervix and uterus; Z90.49 Acquired absence of other specified parts of digestive tract; Z79.82 Long term (current) use of aspirin; Z82.49 Family history of ischemic heart disease and other diseases of the circulatory system; Z83.3 Family history of diabetes mellitus; Z80.9 Family history of malignant neoplasm, unspecified
CPT/HCPCS: 36415; 71010; 71275; 80048; 80053; 80061; 80307; 81001; 82550; 82553; 83690; 83735; 84439; 84443; 84484; 85025; 85610; 85730; 93005; 93010; 93306; 93970; 96365; 96366; 96375; 96376; 99291; J0153; J1650; J3490; J7030

== ENCOUNTER → 2016-11-29 | Outpatient (CLI) | payer OTHER ==
--- NOTE | 2016-11-29 08:56 | WOMENS IMAGING REPORT ---
EXAM DESCRIPTION: BILAT SCREENING MAMMO W/CAD COMPLETED DATE/TIME: 11/29/2016 8:13 am REASON FOR STUDY: Z12.31, ROUTINE SCREENING MAMMO Z12.31 ENCNTR SCREEN MAMMOGRAM FOR MALIGNANT NEOP LASM OF JUAN COMPARISON: Multiple since 06/30/2009 TECHNIQUE: Standard craniocaudal and mediolateral oblique views of each breast recorded using digita l acquisition. LIMITATIONS: None. FINDINGS: No masses, calcifications or architectural distortion. No areas of suspicion. Read with the assistance of CAD. .[facility] - R2 Cenova Version 1.3 .[facility] - R2 Cenova Version 1.3 .[facility] - R2 Cenova Version 2.4 .[facility] [place] - R2 Cenova Version 2.4 .[facility] - R2 Event Manager Version 9.2 IMPRESSION: NORMAL MAMMOGRAM. BIRADS 1. BREAST DENSITY: b. There are scattered areas of fibroglandular density. BIRAD: 1 NEGATIVE RECOMMENDATION: ROUTINE SCREENING COMMENT: The patient has been notified of the results by letter per MQSA requirements. Additional no tification policies are in place for contacting patient with suspicious or incomplete findings. Quality ID #[id number]: The [employer] recommends an annual screening mammogram for women aged 40 years or over. This facility utilizes a reminder system to ensure that all patients receive reminder letters, and/or direct phone calls for appointments. This includes reminders for routine scr eening mammograms, diagnostic mammograms, or other Breast Imaging Interventions when appropriate. Th is patient will be placed in the appropriate reminder system. The [employer] (ACR) has developed recommendations for screening MRI of the breast s in certain patient populations, to be used in conjunction with mammography. Breast MRI surveillanc e may be appropriate for women with more than 20% lifetime risk of developing breast cancer as deter mined by genetic testing, significant family history of the disease, or history of mantle radiation f or Hodgkins Disease. ACR Practice Guidelines 2008. TECHNICAL DOCUMENTATION: FINDING NUMBER: (1) ASSESSMENT: (1) JOB ID: [id number] [employer]- All Rights Reserved
== END ==
LOC: WI 07:29
PROVIDERS: ATTEND Internal Medicine
DX: Z12.31 Encounter for screening mammogram for malignant neoplasm of breast (principal)
CPT/HCPCS: 77067; G0202

== ENCOUNTER 2017-02-23 22:48 | Emergency (ER) | payer MEDICARE, OTHER ==
[2017-02-23 23:21] VITALS: BP 136/77
--- NOTE | 2017-02-24 00:59 | ER Document Report ---
ED Eye Complaint - General Chief Complaint: Vision Problem Stated Complaint: VISION PROBLEMS Time Seen by Provider: 02/24/17 00:59 Mode of Arrival: Ambulatory Information source: Patient Notes: 66 yo non smoker female corrective lens wearer, non contacts, dry eyes, mild cataracs, sunday evening felt like there was something on her glasses-? floater- upper outer corner, sometime during that time she sneezed, at 9 pm saw upper outer corner got dark (inky) couldn't see past it for a few seconds, then it was like stuff was moving in visual field with wavy, right eye is now feeling irritated. Headache frontal / started at 9 pm. PMH: afib, resolved, PE, total knee replacement, OR CABG x 3 2014, Pt of Dr. Torre. No parathessia, no weakness. TRAVEL OUTSIDE OF THE [place] IN LAST 30 DAYS: No - Related Data Allergies/Adverse Reactions: No Known Allergies Allergy (Verified 02/23/17 23:17) Past Medical History - General Information source: Patient - Social History Smoking Status: Never Smoker Frequency of alcohol use: None Drug Abuse: None Lives with: Family Family History: CAD - mother and father had OR, DM, Malignancy - Past Medical History Cardiac Medical History: Reports: Hx Coronary Artery Disease, Hx Heart Attack, Hx Hypercholesterolemia Denies: Hx Hypertension Pulmonary Medical History: Renal/ Medical History: Denies: Hx Peritoneal Dialysis GI Medical History: Musculoskeltal Medical History: Reports Hx Arthritis - Knee, hands Infectious Medical History: Past Surgical History: Reports: Hx Cholecystectomy, Hx Coronary Artery Bypass Graft, Hx Hysterectomy, Hx Orthopedic Surgery - R. TKR - Immunizations Hx Diphtheria, Pertussis, Tetanus Vaccination: Yes Review of Systems - Review of Systems Constitutional: No symptoms reported EENT: See HPI Cardiovascular: No symptoms reported Respiratory: No symptoms reported Gastrointestinal: No symptoms reported Genitourinary: No symptoms reported Female Genitourinary: No symptoms reported Musculoskeletal: No symptoms reported Skin: No symptoms reported Hematologic/Lymphatic: No symptoms reported Neurological/Psychological: No symptoms reported Physical Exam - Vital signs Vitals: Temp Pulse Resp BP Pulse Ox 98.1 F 68 18 136/77 H 99 02/23/17 23:17 02/23/17 23:17 02/23/17 23:17 02/23/17 23:17 02/23/17 23:17 Interpretation: Normal - General General appearance: Appears well, Alert - HEENT Head: Normocephalic, Atraumatic Eyes: Normal Conjunctiva: Normal Cornea: Normal. No: Corneal abrasion, Flourescein stain uptake, Opacified Extraocular movements intact: Yes Pupils: PERRL Visual acuity- Right eye: 20/40 Visual acuity- Left eye: 20/40 Corrective lenses worn: Yes - Respiratory Respiratory status: No respiratory distress Chest status: Nontender Breath sounds: Normal Chest palpation: Normal - Cardiovascular Rhythm: Regular Heart sounds: Normal auscultation Murmur: No - Abdominal Inspection: Normal Distension: No distension Bowel sounds: Normal Tenderness: Nontender Organomegaly: No organomegaly - Back Back: Normal, Nontender - Extremities General upper extremity: Normal inspection, Nontender, Normal color, Normal ROM , Normal temperature General lower extremity: Normal inspection, Nontender, Normal color, Normal ROM , Normal temperature, Normal weight bearing. No: Chichi's sign - Neurological Neuro grossly intact: Yes Cognition: Normal Orientation: AAOx4 Weston Coma Scale Eye Opening: Spontaneous Richie Coma Scale Verbal: Oriented Richie Coma Scale Motor: Obeys Commands Weston Coma Scale Total: 15 Speech: Normal Motor strength normal: LUE, RUE, LLE, RLE Sensory: Normal - Psychological Associated symptoms: Normal affect, Normal mood - Skin Skin Temperature: Warm Skin Moisture: Dry Skin Color: Normal Course - Re-evaluation Re-evalutation: 02/24/17 03:07 ct and labs normal. Called to dr. sahu, consult, he thinks it may be vitreous detachement since no flashing lights. He will meet her at the office at 12:30 pm sunday (today) 02/24/17 03:23 02/24/17 16:19 pt texted me today, she had a vitreous tear, will f/u again in 3 weeks with opth - Vital Signs Vital signs: Temp Pulse Resp BP Pulse Ox 98.1 F 68 18 136/77 H 99 02/23/17 23:17 02/23/17 23:17 02/23/17 23:17 02/23/17 23:17 02/23/17 23:17 - Laboratory Result Diagrams: 02/24/17 02:20 02/24/17 02:20 Laboratory results interpreted by me: 02/24/17 02/24/17 02:20 02:20 Monocytes % 13.2 H Calcium 10.3 H Discharge - Discharge Clinical Impression: right eye visual distrubance Condition: Good Disposition: HOME, SELF-CARE Additional Instructions: see dr. sahu at the office at 12:30 pm sunday (today) to er any concerns copy of labs, imaging given to you Please complete the patient satisfaction survey if you get one, and return it.. If you do not receive a survey, then you can go to the [facility] website, [email or web address] and place your comments about your very good care. Thank you very much. It was a pleasure being your medical provider today. Referrals: NAMAN SAHU DO [ACTIVE STAFF] - 02/24/17 12:30 pm (meet him at the office at 12:30)
--- NOTE | 2017-02-24 02:07 | RADIOLOGY REPORT (SQ) ---
EXAM DESCRIPTION: CT HEAD WITHOUT COMPLETED DATE/TIME: 02/24/2017 1:49 am REASON FOR STUDY: visual change right eye COMPARISON: 06/23/2009. TECHNIQUE: Axial images acquired through the brain without intravenous contrast. Images reviewed wi th bone, brain and subdural windows. Images stored on PACS. All CT scanners at this facility use dose modulation, iterative reconstruction, and/or weight based d osing when appropriate to reduce radiation dose to as low as reasonably achievable (ALARA). [facility]: Dose Right [facility]: CareDose [facility]: Dose Right [facility]: Teradose 4D [facility]: Smart [employer] RADIATION DOSE: Up-to-date CT equipment and radiation dose reduction techniques were employed. CTDIv ol: 64.6 mGy. DLP: 1163 mGy-cm. mGy. LIMITATIONS: None. FINDINGS: VENTRICLES: Normal size and contour. CEREBRUM: No masses. No hemorrhage. No midline shift. No evidence for acute infarction. Normal gra y/white matter differentiation. No areas of low density in the white matter. CEREBELLUM: No masses. No hemorrhage. No alteration of density. No evidence for acute infarction. EXTRAAXIAL SPACES: No fluid collections. No masses. ORBITS AND GLOBE: No intra- or extraconal masses. Normal contour of globe without masses. CALVARIUM: No fracture. PARANASAL SINUSES: No fluid or mucosal thickening. SOFT TISSUES: No mass or hematoma. OTHER: No other significant finding. IMPRESSION: NORMAL BRAIN CT WITHOUT CONTRAST. COMMENT: Quality ID # [id number]: Final reports with documentation of one or more dose reduction techniques (e.g., Automated exposure control, adjustment of the mA and/or kV according to patient size, use of iterative reconstruction technique) TECHNICAL DOCUMENTATION: JOB ID: [id number]- All Rights Reserved
[2017-02-24 02:33] LABS: ABSOLUTE EOSINOPHILS # (AUTO) 0.1 10^3/uL (0.0-0.6); ABSOLUTE LYMPHOCYTES (AUTO) 0.9 10^3/uL (0.5-4.7); ABSOLUTE MONOCYTES (AUTO) 0.6 10^3/uL (0.1-1.4); ABSOLUTE NEUT (AUTO) 3.1 10^3/uL (1.7-8.2); BASOPHILS % (AUTO) 0.6 % (0-2); EOSINOPHILS % (AUTO) 1.7 % (0-6); HEMATOCRIT 39.6 % (36.0-47.0); HEMOGLOBIN 13.6 g/dL (12.0-15.5); HGB HCT DIFFERENCE 1.2; LYMPHOCYTES % (AUTO) 18.3 % (13-45); MEAN CORPUSCULAR HEMOGLOBIN 30.4 pg (27.0-33.4); MEAN CORPUSCULAR HGB CONC 34.4 g/dL (32.0-36.0); MEAN CORPUSCULAR VOLUME 88 fl (80-97); MONOCYTES % (AUTO) 13.2 % (3-13); RED BLOOD COUNT 4.49 10^6/uL (3.72-5.28); RED CELL DISTRIBUTION WIDTH 13.6 % (11.5-14.0); SEGMENTED NEUTROPHILS % (AUTO) 66.2 % (42-78); WHITE BLOOD COUNT 4.7 10^3/uL (4.0-10.5)
[2017-02-24 02:44] LABS: ALANINE AMINOTRANSFERASE 28 U/L (9-52); ALBUMIN 4.6 g/dL (3.5-5.0); ALKALINE PHOSPHATASE 109 U/L (38-126); ANION GAP 14 (5-19); ASPARTATE AMINO TRANSFERASE 16 U/L (14-36); BILIRUBIN,DIRECT 0.4 mg/dL (0.0-0.4); BILIRUBIN,TOTAL 1.3 mg/dL (0.2-1.3); BLOOD UREA NITROGEN 16 mg/dL (7-20); CALCIUM 10.3 mg/dL (8.4-10.2); CARBON DIOXIDE 25 mmol/L (22-30); CHLORIDE 105 mmol/L (98-107); CREATININE RESULT 0.83 mg/dL (0.52-1.25); GLUCOSE 104 mg/dL (75-110); POTASSIUM 4.2 mmol/L (3.6-5.0); SODIUM 144.2 mmol/L (137-145); TOTAL PROTEIN 7.1 g/dL (6.3-8.2)
== END 2017-02-24 03:56 | disposition home or self-care (01) ==
LOC: ER 22:48
DX: H53.9 Unspecified visual disturbance (principal); R51 Headache; I48.91 Unspecified atrial fibrillation; Z86.711 Personal history of pulmonary embolism; I25.2 Old myocardial infarction
CPT/HCPCS: 36415; 70450; 80053; 85025; 99284

== ENCOUNTER → 2017-11-30 | Outpatient (CLI) | payer MEDICARE, OTHER ==
--- NOTE | 2017-12-03 13:43 | WOMENS IMAGING REPORT ---
EXAM DESCRIPTION: 3D SCREENING MAMMO BILAT COMPLETED DATE/TIME: 11/30/2017 10:02 am REASON FOR STUDY: ROUTINE SCREENING;Z12.31 Z12.31 ENCNTR SCREEN MAMMOGRAM FOR MALIGNANT NEOPLASM OF JUAN COMPARISON: 12/05/2016 and 08/30/2015. TECHNIQUE: Standard craniocaudal and mediolateral oblique views of each breast recorded using digita l acquisition and breast tomosynthesis. LIMITATIONS: None. FINDINGS: No masses, calcifications or architectural distortion. No areas of suspicion. Read with the assistance of CAD. .[facility] - R2 Cenova Version 1.3 .[facility] Imaging - R2 Cenova Version 1.3 .[facility] Imaging - R2 Cenova Version 2.4 .[facility] [place] R2 Cenova Version 2.4 .[facility] - R2 Certified Medical Technician Assistant Version 9.2 IMPRESSION: NORMAL MAMMOGRAM. BIRADS 1. BREAST DENSITY: b. There are scattered areas of fibroglandular density. BIRAD: 1 NEGATIVE RECOMMENDATION: ROUTINE SCREENING COMMENT: The patient has been notified of the results by letter per MQSA requirements. Additional no tification policies are in place for contacting patient with suspicious or incomplete findings. Quality ID #225: The [place] [employer] recommends an annual screening mammogram for women aged 40 years or over. This facility utilizes a reminder system to ensure that all patients receive reminder letters, and/or direct phone calls for appointments. This includes reminders for routine scr eening mammograms, diagnostic mammograms, or other Breast Imaging Interventions when appropriate. Th is patient will be placed in the appropriate reminder system. The [place] [employer] (ACR) has developed recommendations for screening MRI of the breast s in certain patient populations, to be used in conjunction with mammography. Breast MRI surveillanc e may be appropriate for women with more than 20% lifetime risk of developing breast cancer as deter mined by genetic testing, significant family history of the disease, or history of mantle radiation f or Hodgkins Disease. ACR Practice Guidelines 2008. DBT Technology DBT is a type of tomographic mammography. With conventional mammography, overlapping breast tissue ma y make lesions difficult to detect, even with good compression. DBT uses an x-ray tube that rotates a round the breast, taking images at different angles. These images are then combined to create thin sl ices of the breast that the radiologist can view as a 3D reconstruction. The fl3ur unit can perform full-field digital mammograms (2D imaging); or DBT (3D imaging); or both, in a combination mode that quickly performs both the mammogram and the tomosynthesis scan while the breast is still compressed. PQRS 6045F: Fluoroscopic imaging is not utilized for breast tomosynthesis. TECHNICAL DOCUMENTATION: FINDING NUMBER: (1) ASSESSMENT: (1) JOB ID: [id number] [employer]- All Rights Reserved Reading location - IP/workstation name: [email or web address]
== END ==
LOC: WI 09:56
PROVIDERS: ATTEND Physician Assistant
DX: Z12.31 Encounter for screening mammogram for malignant neoplasm of breast (principal)
CPT/HCPCS: 77063; 77067

== ENCOUNTER → 2018-12-02 | Outpatient (CLI) | payer MEDICARE, OTHER ==
--- NOTE | 2018-12-02 11:30 | WOMENS IMAGING REPORT ---
EXAM DESCRIPTION: 3D SCREENING MAMMO BILAT COMPLETED DATE/TIME: 12/02/2018 10:32 am REASON FOR STUDY: Z12.31 ROUTINE 3D BILATERAL SCREENING Z12.31 ENCNTR SCREEN MAMMOGRAM FOR MALIGNAN T NEOPLASM OF JUAN COMPARISON: 2014 -2017 EXAM PARAMETERS: Views: Standard craniocaudal and mediolateral oblique views of each breast recorded using digital acquisition and breast tomosynthesis. Read with the assistance of CAD. .[facility] - [employer] General Office Worker Version 9.2 LIMITATIONS: None. FINDINGS: No suspicious masses, suspicious calcifications or architectural distortion. No areas of c oncern. IMPRESSION: NEGATIVE MAMMOGRAM. BIRADS 1. BREAST DENSITY: b. There are scattered areas of fibroglandular density. BIRAD: ASSESSMENT: 1 NEGATIVE RECOMMENDATION: ROUTINE SCREENING COMMENT: The patient has been notified of the results by letter per MQSA requirements. Additional no tification policies are in place for contacting patient with suspicious or incomplete findings. Quality ID #225: The [place] [employer] recommends an annual screening mammogram for women aged 40 years or over. This facility utilizes a reminder system to ensure that all patients receive reminder letters, and/or direct phone calls for appointments. This includes reminders for routine scr eening mammograms, diagnostic mammograms, or other Breast Imaging Interventions when appropriate. Th is patient will be placed in the appropriate reminder system. TECHNICAL DOCUMENTATION: FINDING NUMBER: (1) ASSESSMENT: (1) JOB ID: [id number] [employer]- All Rights Reserved Reading location - IP/workstation name: [email or web address]
== END ==
LOC: WI 10:15
PROVIDERS: ATTEND Internal Medicine
DX: Z12.31 Encounter for screening mammogram for malignant neoplasm of breast (principal)
CPT/HCPCS: 77063; 77067

== ENCOUNTER → 2019-12-04 | Outpatient (CLI) | payer MEDICARE, OTHER ==
--- NOTE | 2019-12-04 14:36 | WOMENS IMAGING REPORT ---
EXAM DESCRIPTION: 3D SCREENING MAMMO BILAT IMAGES COMPLETED DATE/TIME: 12/04/2019 9:03 am REASON FOR STUDY: Z12.31 ENCOUNTER FOR SCREENING MAMMOGRAM FOR MALIGNANT NEOPLASM OF BREAST Z12.31 ENCNTR SCREEN MAMMOGRAM FOR MALIGNANT NEOPLASM OF JUAN COMPARISON: 12/02/2018, 11/30/2017, 11/29/2016 EXAM PARAMETERS: Views: Standard craniocaudal and mediolateral oblique views of each breast recorded using digital acquisition and breast tomosynthesis. Read with the assistance of CAD. .[facility] - R2 Harness Fitter Version 9.2 LIMITATIONS: None. FINDINGS: No suspicious masses, suspicious calcifications or architectural distortion. No areas of c oncern. IMPRESSION: NEGATIVE MAMMOGRAM. BIRADS 1. BREAST DENSITY: b. There are scattered areas of fibroglandular density. BIRAD: ASSESSMENT: 1 NEGATIVE RECOMMENDATION: ROUTINE SCREENING COMMENT: The patient has been notified of the results by letter per MQSA requirements. Additional no tification policies are in place for contacting patient with suspicious or incomplete findings. Quality ID #225: The [place] [employer] recommends an annual screening mammogram for women aged 40 years or over. This facility utilizes a reminder system to ensure that all patients receive reminder letters, and/or direct phone calls for appointments. This includes reminders for routine scr eening mammograms, diagnostic mammograms, or other Breast Imaging Interventions when appropriate. Th is patient will be placed in the appropriate reminder system. TECHNICAL DOCUMENTATION: FINDING NUMBER: (1) ASSESSMENT: (1) JOB ID: [id number] 2010 [employer] All Rights Reserved Reading location - IP/workstation name: [email or web address]
== END ==
LOC: WI 08:36
PROVIDERS: ATTEND Internal Medicine
DX: Z12.31 Encounter for screening mammogram for malignant neoplasm of breast (principal)
CPT/HCPCS: 77063; 77067

== ENCOUNTER 2020-02-12 07:51 | Day surgery (SDC) | payer MEDICARE, OTHER ==
[~2020-02-12 07:51] MED LIST: KETOROLAC TROMETHAMINE 0.45% 4 DROP/0.4 ML DROPERETTE OD PRN
[2020-02-12] MEDS: CYCLOPENTOLATE 0.2%/PHENYLEPHRINE 1% OPH SOLN 2 ML OD PRN ×3 (08:25→08:45)
[2020-02-12] MEDS: TROPICAMIDE 1% OPH SOLN 15 ML OD PRN ×3 (08:25→08:45)
[2020-02-12] MEDS: TETRACAINE HCL 0.5% OPH SOLN 4 ML OD PRN ×4 (08:25→09:05)
[2020-02-12] MEDS: BESIFLOXACIN HCL 0.6% OPH SUSP 5 ML BOTTLE OD PRN ×4 (08:25→09:23)
[2020-02-12] MEDS ORDERED: MIDAZOLAM 2 MG/2 ML INJ ONE (08:55)
[2020-02-12] MEDS ORDERED: FENTANYL CITRATE INJ/PF 100 MCG/2 ML AMPUL ONE (08:56)
[2020-02-12] MEDS: EPINEPHRINE INJ/PF 1 MG/1 ML AMPULE ONE ×2 (09:13)
[2020-02-12] MEDS: CHONDR SU A NA/HYALUR INTRAOC KIT (SURGICARE) ONE ×2 (09:13)
[2020-02-12] MEDS: LIDOCAINE 1%/PHENYLEPHRINE 1.5% 0.8 ML SYRINGE ONE ×2 (09:13)
[2020-02-12] MEDS: PREDNISOLONE ACETATE 1% OPH SUSP 5 ML OD PRN ×2 (09:23)
[2020-02-12] MEDS: DORZOLAMIDE HCL 2%/TIMOLOL MALEAT 0.5% OPH SOLN 10 ML OD PRN ×2 (09:23)
--- NOTE | 2020-02-12 12:56 | Operative Report ---
Operative Report-[facility] Operative Report: DATE OF SURGERY: 02/12/2020 PREOPERATIVE DIAGNOSIS: Cataract, right eye POSTOPERATIVE DIAGNOSIS: Cataract, right eye OPERATION: Cataract extraction with insertion of an IOL of the right eye. Intraocular Lens Model: [16.5 sn60wf] She underwent surgery for difficulty reading road signs and TV SURGEON: Castillo Beckham MD ANESTHESIA: Topical PROCEDURE: After obtaining appropriate consent, the patient's right eye was prepped and draped in a sterile fashion as well as the surgeon in the sterile manner and cataract surgery was started. First a paracentesis blade was used to make a side-port incision. Viscoelastic was used to inflate the anterior chamber. Next a 2.4 mm incision was made with a 2.4 mm blade, clear corneal temporarily. A continuous capsulorrhexis was made using a cystotome and Utrata forceps. Following this hydrodissection was carried out to make the kavita fully loose and mobile and it was rotated. Following this, a divide and conquer technique was used to phacoemulsify the kavita. The remaining cortex was removed with an irrigation/aspiration. Provisc was instilled into the capsular bag to inflate the bag. The intraocular lens was placed. The remaining viscoelastic material was removed with irrigation/aspiration. Following this, the incision was found to be watertight. Besivance and Cosopt was instilled into the eye and a protective shield was placed over the eye. The patient was reurned to the postoperative recovery in a stable condition.
== END 2020-02-12 09:57 | disposition home or self-care (01) ==
LOC: SC 07:51
PROVIDERS: ATTEND Internal Medicine
DX: H25.13 Age-related nuclear cataract, bilateral (principal); H01.00A Unspecified blepharitis right eye, upper and lower eyelids; H01.00B Unspecified blepharitis left eye, upper and lower eyelids; H43.813 Vitreous degeneration, bilateral; H04.123 Dry eye syndrome of bilateral lacrimal glands; E78.00 Pure hypercholesterolemia, unspecified; I25.2 Old myocardial infarction; I48.91 Unspecified atrial fibrillation; Z86.74 Personal history of sudden cardiac arrest; I25.10 Atherosclerotic heart disease of native coronary artery without angina pectoris; I49.9 Cardiac arrhythmia, unspecified; Z79.82 Long term (current) use of aspirin; Z86.711 Personal history of pulmonary embolism
CPT/HCPCS: 66984; 00142; V2632; J2250; J3490 ×3; A9270; J0171; J3010; 142

== ENCOUNTER 2020-03-04 08:24 | Day surgery (SDC) | payer MEDICARE, OTHER ==
[~2020-03-04 08:24] MED LIST changes: +CHONDR SU A NA/HYALUR INTRAOC KIT (SURGICARE) ONE; +DORZOLAMIDE HCL 2%/TIMOLOL MALEAT 0.5% OPH SOLN 10 ML OS PRN; +EPINEPHRINE INJ/PF 1 MG/1 ML AMPULE ONE; -KETOROLAC TROMETHAMINE 0.45% 4 DROP/0.4 ML DROPERETTE OD PRN; +KETOROLAC TROMETHAMINE 0.45% 4 DROP/0.4 ML DROPERETTE OS PRN; +LIDOCAINE 1%/PHENYLEPHRINE 1.5% 0.8 ML SYRINGE ONE; +MIDAZOLAM 2 MG/2 ML INJ ONE; +PREDNISOLONE ACETATE 1% OPH SUSP 5 ML OS PRN
[2020-03-04] MEDS: TROPICAMIDE 1% OPH SOLN 15 ML OS PRN ×3 (08:45→09:30)
[2020-03-04] MEDS: CYCLOPENTOLATE 0.2%/PHENYLEPHRINE 1% OPH SOLN 2 ML OS PRN ×3 (08:45→09:30)
[2020-03-04] MEDS: BESIFLOXACIN HCL 0.6% OPH SUSP 5 ML BOTTLE OS PRN ×3 (09:02→09:49)
[2020-03-04] MEDS: TETRACAINE HCL 0.5% OPH SOLN 4 ML OS PRN ×3 (09:02→09:32)
--- NOTE | 2020-03-04 13:19 | Operative Report ---
Operative Report[facility] Operative Report: DATE OF SURGERY: 03/04/2020 PREOPERATIVE DIAGNOSIS: Cataracts, left eye POSTOPERATIVE DIAGNOSIS: Cataract, left eye OPERATION: Cataract extraction with insertion of an IOL of the left eye. Intraocular Lens Model: [17.0 SN 60 WF] Patient underwent cataract surgery for difficulty reading small print SURGEON: Castillo Beckham MD ANESTHESIA: Topical PROCEDURE: After obtaining appropriate consent, the patient's left eye was prepped and draped in a sterile fashion as well as the surgeon in the sterile manner and cataract surgery was started. First a paracentesis blade was used to make a side-port incision. Viscoelastic was used to inflate the anterior chamber. Next a 2.4 mm incision was made with a 2.4 mm blade, clear corneal temporarily. A continuous capsulorrhexis was made using a cystotome and Utrata forceps. Following this hydrodissection was carried out to make the lens fully loose and mobile and it was rotated 90 degrees. Following this, a divide and conquer technique was used to phacoemulsify the lens. The remaining cortex was removed with an irrigation/aspiration. Provisc was instilled into the capsular bag to inflate the bag.The intraocular lens was placed. The remaining viscoelastic material was removed with irrigation/aspiration. Following this, the incision was found to be watertight. Besivance and Cosopt was instilled into the eye and a protective shield was placed over the eye. The patient was returned to the postoperative recovery in a stable condition.
== END 2020-03-04 10:22 | disposition home or self-care (01) ==
LOC: SC 08:24
PROVIDERS: ATTEND Internal Medicine
DX: H25.12 Age-related nuclear cataract, left eye (principal); Z96.1 Presence of intraocular lens; E78.00 Pure hypercholesterolemia, unspecified; I25.2 Old myocardial infarction; I48.92 Unspecified atrial flutter; Z83.3 Family history of diabetes mellitus; Z83.511 Family history of glaucoma; Z79.82 Long term (current) use of aspirin; G47.30 Sleep apnea, unspecified; Z95.1 Presence of aortocoronary bypass graft; I10 Essential (primary) hypertension
CPT/HCPCS: 66984; V2632; J2250; J3490 ×3; A9270; J0171; 142

== ENCOUNTER 2020-03-09 17:46 | Emergency (ER) | payer MEDICARE, OTHER ==
--- NOTE | 2020-03-09 18:29 | ER Document Report ---
ED General - General Chief Complaint: Irregular Pulse Stated Complaint: IRREGULAR PULSE Time Seen by Provider: 03/09/20 18:29 Primary Care Provider: ERNESTO DYE MD [Primary Care Provider] - Follow up as needed TRAVEL OUTSIDE OF THE [place] IN LAST 30 DAYS: No - HPI Notes: 69-year-old female presents with palpitations. Patient states that she sat down and felt generalized weakness/tiredness, she felt palpitations in her neck, she checked her watch and saw that her heart rate was 155. She then reviewed her heart rate, appears to be in the 150s since 3 PM. She has a history of A. fib, she is status post ablation in 2018. She is also had a CABG x3. She denies chest pain or shortness of breath. She states that she saw her superintendent transmission on the , at that appointment her heart rate was in the 50s and her blood pressure was low, she is started on a metoprolol wean. Yesterday she took 25 mg twice a day, today she was only supposed to take 25 mg once a day, she took the dose in the morning. - Related Data Allergies/Adverse Reactions: No Known Allergies Allergy (Verified 03/04/20 09:21) Past Medical History - General Information source: Patient - Social History Smoking Status: Never Smoker Family History: CAD, DM, Malignancy - Past Medical History Cardiac Medical History: Reports: Hx Coronary Artery Disease, Hx Heart Attack - 2014, Hx Hypercholesterolemia, Hx Pulmonary Embolism Denies: Hx Hypertension Pulmonary Medical History: Reports: Hx Sleep Apnea Denies: Hx Asthma, Hx Bronchitis, Hx COPD, Hx Pneumonia Neurological Medical History: Denies: Hx Cerebrovascular Accident, Hx Seizures Renal/ Medical History: Reports: Hx Peritoneal Dialysis GI Medical History: Denies: Hx Hepatitis, Hx Hiatal Hernia, Hx Ulcer Musculoskeletal Medical History: Reports Hx Arthritis - Knee, hands Psychiatric Medical History: Denies: Hx Depression Infectious Medical History: Denies: Hx Hepatitis Past Surgical History: Reports: Hx Cholecystectomy, Hx Coronary Artery Bypass Graft, Hx Hysterectomy, Hx Open Heart Surgery, Hx Orthopedic Surgery - R. TKR. Denies: Hx Mastectomy, Hx Pacemaker - Immunizations Hx Diphtheria, Pertussis, Tetanus Vaccination: Yes Hx Pneumococcal Vaccination: 03/14/17 Review of Systems - Review of Systems Constitutional: denies: Fever EENT: No symptoms reported Cardiovascular: Palpitations. denies: Chest pain Respiratory: denies: Short of breath Gastrointestinal: denies: Abdominal pain Genitourinary: No symptoms reported Musculoskeletal: No symptoms reported Skin: No symptoms reported Neurological/Psychological: denies: Headaches Physical Exam - Vital signs Vitals: Temp Pulse Resp BP Pulse Ox 98.6 F 151 H 18 150/89 H 96 03/09/20 18:04 03/09/20 18:04 03/09/20 18:04 03/09/20 18:04 03/09/20 18:04 - General General appearance: Appears well, Alert In distress: None - HEENT Head: Normocephalic, Atraumatic Extraocular movements intact: Yes Pupils: PERRL - Respiratory Breath sounds: Normal - Cardiovascular Rhythm: Irregularly irregular, Tachycardia Heart sounds: Normal auscultation Normal capillary refill: Yes - Abdominal Tenderness: Nontender - Extremities General lower extremity: No: Edema - Neurological Neuro grossly intact: Yes Cognition: Normal Orientation: AAOx4 - Psychological Associated symptoms: Normal affect - Skin Skin Temperature: Warm Course - Re-evaluation Re-evalutation: 69-year-old female history of A. fib status post ablation, states has had normal rhythm since the ablation, here with palpitations, symptomatic at 5 PM but her watch review started around 3 PM. She is well-appearing on exam, nontoxic, no focal neuro deficits. She is in A. fib with RVR, will give a dose of IV Cardizem. Suspect it is due to the down titration of her beta-marcy. She does not voice any other symptomatology for acute illness. No chest pain. 03/09/20 19:00 Heart rate now in 70s to 80s after Cardizem administration. Will order her usual home dose of 25 mg metoprolol. Repeat EKG 03/09/20 19:28 Repeat EKG obtained, rate controlled A. fib 03/09/20 19:54 No leukocytosis or left shift. No acute anemia. Electrolytes within normal limits. Creatinine within normal limits. Troponin negative. 03/09/20 20:32 Patient has remained rate controlled A. fib after medications. I went in to discuss with her. She would like to go home at this time. I feel that this is reasonable. She states that she will call her superintendent transmission in the morning. She will continue on full dose aspirin and to resume metoprolol twice daily dosing. Return precautions given, patient stable at time of discharge. - Vital Signs Vital signs: Temp Pulse Resp BP Pulse Ox 98.6 F 151 H 20 112/80 97 03/09/20 18:04 03/09/20 18:04 03/09/20 19:11 03/09/20 19:11 03/09/20 19:11 - Laboratory Result Diagrams: 03/09/20 18:17 03/09/20 18:17 Laboratory results interpreted by me: 03/09/20 03/09/20 18:17 18:17 Glucose 121 H Magnesium 2.4 H - Diagnostic Test Radiology reviewed: Image reviewed, Reports reviewed - EKG Interpretation by Me Additional EKG results interpreted by me: EKG is interpreted by me. Atrial fibrillation with rapid ventricular response, rate 140s. Narrow QRS, QTC within normal limits. Nonspecific T wave abnormalities, suspect rate related. 03/09/20 19:28 EKG interpreted by me. This is a repeat EKG status post Cardizem administration. Rate has significantly improved, rhythm remains atrial fibrillation. No longer in RVR. No ST segment elevation. QTc within normal limits. Discharge - Discharge Clinical Impression: Paroxysmal atrial fibrillation with RVR Condition: Stable Disposition: HOME, SELF-CARE Additional Instructions: Please call your superintendent transmission tomorrow to discuss episode of A. fib with RVR. You are being discharged with a rate controlled A. fib. Please continue full dose aspirin and resume metoprolol dosing twice a day. Return to the emergency department for any concerning worsening symptoms. Referrals: ERNESTO DYE MD [Primary Care Provider] - Follow up as needed
[2020-03-09] MEDS ORDERED: DILTIAZEM HCL INJ 25 MG/5 ML VIAL IV ONE (18:37)
[2020-03-09 18:38] LABS: ABSOLUTE EOSINOPHILS # (AUTO) 0.2 10^3/uL (0.0-0.6); ABSOLUTE LYMPHOCYTES (AUTO) 1.7 10^3/uL (0.5-4.7); ABSOLUTE MONOCYTES (AUTO) 0.6 10^3/uL (0.1-1.4); ABSOLUTE NEUT (AUTO) 3.3 10^3/uL (1.7-8.2); BASOPHILS % (AUTO) 0.6 % (0-2); EOSINOPHILS % (AUTO) 3.3 % (0-6); HEMATOCRIT 39.9 % (36.0-47.0); HEMOGLOBIN 13.7 g/dL (12.0-15.5); LYMPHOCYTES % (AUTO) 29.4 % (13-45); MEAN CORPUSCULAR HEMOGLOBIN 30.4 pg (27.0-33.4); MEAN CORPUSCULAR HGB CONC 34.2 g/dL (32.0-36.0); MEAN CORPUSCULAR VOLUME 89 fl (80-97); MONOCYTES % (AUTO) 9.9 % (3-13); PLATELET COUNT 255 10^3/uL (150-450); RED CELL DISTRIBUTION WIDTH 13.1 % (11.5-14.0); SEGMENTED NEUTROPHILS % (AUTO) 56.8 % (42-78); TOTAL CELLS COUNTED % (AUTO) 100 %; WHITE BLOOD COUNT 5.7 10^3/uL (4.0-10.5)
[2020-03-09 18:50] LABS: ALBUMIN 4.4 g/dL (3.5-5.0); ALKALINE PHOSPHATASE 91 U/L (38-126); ANION GAP 9 (5-19); ASPARTATE AMINO TRANSFERASE 18 U/L (14-36); BILIRUBIN,DIRECT 0.3 mg/dL (0.0-0.4); BILIRUBIN,TOTAL 0.9 mg/dL (0.2-1.3); BLOOD UREA NITROGEN 15 mg/dL (7-20); CALCIUM 9.8 mg/dL (8.4-10.2); CARBON DIOXIDE 29 mmol/L (22-30); CHLORIDE 104 mmol/L (98-107); GLUCOSE 121 mg/dL (75-110); POTASSIUM 4.1 mmol/L (3.6-5.0); TOTAL PROTEIN 6.8 g/dL (6.3-8.2)
--- NOTE | 2020-03-09 18:51 | RADIOLOGY REPORT (SQ) ---
EXAM DESCRIPTION: CHEST SINGLE VIEW IMAGES COMPLETED DATE/TIME: 03/09/2020 6:37 pm REASON FOR STUDY: chest pain COMPARISON: None. EXAM PARAMETERS: NUMBER OF VIEWS: One view. TECHNIQUE: Single frontal radiographic view of the chest acquired. RADIATION DOSE: NA LIMITATIONS: None. FINDINGS: LUNGS AND PLEURA: No opacities, masses or pneumothorax. No pleural effusion. MEDIASTINUM AND HILAR STRUCTURES: No masses. Contour normal. HEART AND VASCULAR STRUCTURES: Heart normal in size. Normal vasculature. BONES: No acute findings. HARDWARE: Midline surgical changes. OTHER: No other significant finding. IMPRESSION: NO ACUTE RADIOGRAPHIC FINDING IN THE CHEST. TECHNICAL DOCUMENTATION: JOB ID: [id number] 2010 [employer]- All Rights Reserved Reading location - IP/workstation name: [email or web address]
[2020-03-09] MEDS ORDERED: METOPROLOL TARTRATE 25 MG TABLET PO ONE (19:01)
[2020-03-09 19:02] LABS: CREATINE KINASE MB 1.44 ng/mL (<4.55)
--- NOTE | 2020-03-09 19:03 | EKG REPORT ---
SEVERITY:- ABNORMAL ECG - ATRIAL FIBRILLATION WITH RAPID VENT RESPONSE. NONSPECIFIC T ABNORMALITIES, LATERAL LEADS : Confirmed by: Saul Kuhn MD 09-Mar-2020 19:03:13
[2020-03-09 19:07] LABS: TROPONIN I < 0.012 ng/mL
[2020-03-09 20:45] VITALS: BP 123/84
--- NOTE | 2020-03-10 07:46 | EKG REPORT ---
SEVERITY:- ABNORMAL ECG - ATRIAL FIBRILLATION : Confirmed by: Saul Kuhn MD 10-Mar-2020 07:46:15
== END 2020-03-09 20:45 | disposition home or self-care (01) ==
LOC: ER 17:46
DX: I48.0 Paroxysmal atrial fibrillation (principal); I25.10 Atherosclerotic heart disease of native coronary artery without angina pectoris; E78.00 Pure hypercholesterolemia, unspecified; Z90.49 Acquired absence of other specified parts of digestive tract; Z86.711 Personal history of pulmonary embolism; Z95.1 Presence of aortocoronary bypass graft; I25.2 Old myocardial infarction
CPT/HCPCS: 93005; 99285; 96374; 36415; 82553; 83735; 85025; 80053; 84484; 71045; 93010; J3490; A9270